=== PATIENT | male | born 1955 | race Caucasian/White ===

== ENCOUNTER → 2018-01-21 | Outpatient (CLI) | payer OTHER ==
[~2018-01-21] MED LIST: AMARYL; GEMF600T4 PO; GLIM4TAB PO; GLIMEPIRIDE; HYDR-3820 PO; HYDROCODONE; LEVO125T6 PO; METF10002 PO; METFORMIN; PANT40TA3 PO; SYNTHROID
--- NOTE | 2018-01-21 11:53 | Diagnostic Imaging Report ---
PROCEDURE: US abdomen complete. TECHNIQUE: Multiple real-time grayscale images were obtained over the abdomen in various projections. INDICATION: Epigastric pain. Study is somewhat compromised due to overlying bowel gas. The pancreas, aorta and IVC were obscured by bowel gas. The liver is normal in size at 14 cm. There is a 15 mm cyst involving the left lobe. No other liver mass is identified. The gallbladder is without stones or sludge. No wall thickening or biliary duct dilatation is seen. Right and left kidneys are unremarkable. No calculi or hydronephrosis is seen. There is no ascites. IMPRESSION: 1. Small hepatic cyst. 2. No evidence of cholelithiasis or acute cholecystitis. Dictated by: Dictated on workstation # [id number]
== END ==
LOC: RAD 11:04
PROVIDERS: ATTEND Internal Medicine
DX: K76.89 Other specified diseases of liver (principal)
CPT/HCPCS: 76700

== ENCOUNTER 2018-02-25 14:42 | Outpatient (CLI) | payer OTHER ==
[~2018-02-25] VITALS: Ht 180.3 cm; Wt 89.8 kg
[~2018-02-25 14:42] MED LIST changes: +INSU100I14 SQ; +INSU100I32 SQ; +LISI10TA2 PO; +METF-399 PO; -METF10002 PO
[2018-03-01] MEDS ORDERED: ACHD5005 PO (13:15)
== END 2018-02-25 15:00 | disposition home or self-care (01) ==
LOC: PREOP 14:42
PROVIDERS: ATTEND Surgery
DX: Z01.818 Encounter for other preprocedural examination (principal)

== ENCOUNTER 2018-03-01 08:28 | Inpatient (IN) | payer OTHER, MEDICARE ==
[~2018-03-01] VITALS: Ht 180.3 cm; Wt 89.8 kg
[2018-03-01 09:00] VITALS: BP 97/58
[2018-03-01] MEDS ORDERED: fentaNYL INJECTION 100 MCG/2 ML AMP ONE ×3 (09:10→13:01)
[2018-03-01] MEDS ORDERED: MIDAZOLAM 2 MG/2 ML (VERSED) VIAL ONE (09:10)
[2018-03-01] MEDS ORDERED: metroNIDAZOLE 500 MG/100 ML IVPB (PRE-MIX) IV ONE (09:15)
[2018-03-01] MEDS ORDERED: ceFAZolin 2 GM IV Premixed 50 ML IV ONE (09:15)
[2018-03-01] MEDS ORDERED: metroNIDAZOLE 500MG/100ML IVPB 100 ML IV ONE (09:15)
[2018-03-01] MEDS ORDERED: ceFAZolin 2 GM/50 ML PRE-MIX IVPB IV ONE (09:15)
[2018-03-01] MEDS: LACTATED RINGERS 1,000 ML IV PRN ×3 (09:21→12:50)
[2018-03-01] MEDS ORDERED: FAMOTIDINE 20MG/2ML IV (PEPCID) ONE (09:40)
[2018-03-01] MEDS ORDERED: BUP/EPI 0.5% 1:200,000 (SENSORCAINE) 30 ML VIAL ONE (09:53)
[2018-03-01] MEDS ORDERED: FAMOTIDINE 20MG/2ML IV (PEPCID) IVP ONE (10:00)
--- NOTE | 2018-03-01 10:36 | Progress Note-Pre Operative ---
Pre-Operative Progress Note H&P Reviewed The H&P was reviewed, patient examined and no changes noted. Date Seen by Provider: Feb 17, 2018 Time Seen by Provider: 10:00 Date H&P Reviewed: Mar 01, 2018 Time H&P Reviewed: 10:35 Pre-Operative Diagnosis: mass of the small bowel mesentery RICHMOND RUIZ MD Mar 01, 2018 10:36
[2018-03-01] MEDS ORDERED: ROCURONIUM 10 MG/ML 5 ML SYRINGE IV ONE ×2 (11:29→12:31)
[2018-03-01] MEDS ORDERED: DEXAMETHASONE 10 MG/ML (DECADRON) 1 ML VIAL ONE (11:29)
[2018-03-01] MEDS ORDERED: LIDOCAINE JELLY 2% (XYLOCAINE) 5 ML TUBE ONE (11:29)
[2018-03-01] MEDS ORDERED: ONDANSETRON 4 MG/2 ML (SDV) Z0FRAN ONE (11:29)
[2018-03-01] MEDS ORDERED: LIDOCAINE PF 2% 2 ML (XYLOCAINE) VIAL ONE (11:29)
[2018-03-01] MEDS ORDERED: proPOfol 200 MG/20 ML (DIPRIVAN) VIAL IV ONE (11:29)
[2018-03-01] MEDS ORDERED: SEVOFLURANE (ULTANE) 15 ML INHAL SOLN ONE ×6 (11:29→12:53)
--- NOTE | 2018-03-01 13:10 | Operative Report ---
Operative Report Date of Procedure/Surgery Mar 01, 2018 Surgeon (s) RICHMOND RUIZ MD Vehicle Maintenance Supervisor (s): N/A Post-Operative Diagnosis Mesenteric mass without involvement of the small bowel Procedure Performed Robotic-assisted excision of mesenteric mass Description of Procedure Anesthesia Type: General Estimated blood loss (mL): 25 mL Specimen(s) collected/removed Mesenteric mass Description of the Procedure Indication for the procedure: Evaluation for severe upper abdominal pain revealed a 10 cm mass along the mesentery of the proximal small bowel without any calcification. Due to his symptoms, it was felt reasonable to resect it using minimally invasive technique with robotic assistance. The potential for resecting an associated segment of bowel was discussed explicitly. With regard to the operative procedure, expected recovery, complications of wound infection , intra-abdominal abscess and cardiorespiratory dysfunction with discussed with. Informed consent was obtained. Description of the procedure: He was placed supine on the operative table and general anesthesia induced. A Jenkins catheter was placed to decompress the bladder during surgery. It was removed at the end of the operation. Ancef and Flagyl were administered intravenously as prophylaxis against wound infection. Sequential compression devices were placed around his legs, to minimize the risk of venous thrombosis. Abdomen was prepared and draped in the usual sterile manner. Pneumoperitoneum was established using a Veress needle introduced inferior lateral to the umbilicus, overlying the left lower quadrant, avoiding the inferior epigastric vessels. Intra-abdominal pressure was maintained at 15 mmHg, using carbon dioxide insufflation. A 12 mm trocar was placed and anatomy visualized using the high definition, 3-dimensional laparoscope, associated with da Lucho system. Omentum was wrapped around the mass located around the mid transverse colon. Under direct view, I placed a 12 mm trocar over the left upper quadrant and an 8 mm trocar over the suprapubic region. An additional 8 mm trocar was placed over the epigastric region to facilitate placing the robotic third arm. Patient was turned into slight Trendelenburg position with the right side tilted up and the robotic system docked in place. Omentum was from the right lower quadrant, where it was adherent to the abdominal wall. It was then laid over the upper abdomen revealing the mass. It was loosely adherent to the transverse mesocolon and the root of the mesentery. The small bowel itself was not involved with the pathologist. My careful dissection using the vessel sealing device, the mass was isolated and placed in an Endo Catch bag. Further exploration of the transverse colon and the small bowel was negative for any iatrogenic injury. A 4 cm suprapubic incision was made in a transverse fashion and a small wound protection device placed. Pneumoperitoneum was deflated and the mass placed in an Endo Catch bag via the suprapubic incision. Peritoneum over this incision was closed using 3-0 PDS. The fascia was closed using #2 Prolene. Subcutaneous tissue was closed using 3-0 Vicryl and skin using 4-0 Vicryl. With regard to the 12 mm incisions, the fascia was closed using #1 Vicryl. Skin was closed using 4-0 Vicryl, in a subcuticular fashion. 0.5 percent Marcaine with epinephrine was infiltrated along the incisions both preemptively and at the conclusion of the operation. He tolerated the procedure well, was extubated in the operating room and taken to the recovery room in a stable condition. Findings of the Procedure see op report Allergies and Home Medications Allergies Coded Allergies: No Known Drug Allergies (Unverified , 05/23/12) Home Medications Gemfibrozil 600 Mg Tablet, 600 MG PO BID, (Reported) Glimepiride 4 Mg Tablet, 4 MG PO BID, (Reported) Hydrocodone/Acetaminophen 1 Each Tablet, 1 EACH PO BID, (Reported) Insulin Aspart 300 Units/3 Ml Solution, 10 UNITS SQ TIDAC, (Reported) Insulin Degludec 100 Unit/1 Ml Insuln.pen, 15 UNIT SQ HS, (Reported) Levothyroxine Sodium 125 Mcg Tablet, 125 MCG PO DAILY, (Reported) Metformin HCl 1,000 Mg Tablet, 1,000 MG PO BID, (Reported) Patient Home Medication List Home Medication List Reviewed: Yes RICHMOND RUIZ MD Mar 01, 2018 13:10
[2018-03-01] MEDS ORDERED: ONDANSETRON 4 MG/2 ML (SDV) Z0FRAN IVP PRN ×2 (13:15→13:45)
[2018-03-01] MEDS ORDERED: ACHD5005 PO (13:15)
[2018-03-01] MEDS ORDERED: PATIENT MAY USE OWN MEDS, ALL PO SCH (13:15)
--- NOTE | 2018-03-01 13:16 | Discharge Inst-Simple/Standard ---
Discharge Inst-Standard Discharge Medications New, Converted or Re-Newed RX: RX on Chart Patient Instructions/Follow Up Plan of Care/Instructions/FU: Band-Aids off in a.m. Follow-up in 2 weeks Activity as Tolerated: No Goal: No lifting or pushing Discharge Diet: ADA Diet RICHMOND RUIZ MD Mar 01, 2018 13:16
[2018-03-01] MEDS ORDERED: HYDROmorphone 2 MG/ML VIAL (DILAUDID) ONE (13:30)
[2018-03-01] MEDS ORDERED: SUGAMMADEX 500 MG/5 ML VIAL (BRIDION) IV ONE (13:33)
[2018-03-01] MEDS ORDERED: fentaNYL INJECTION 100 MCG/2 ML AMP IVP ONE (13:45)
[2018-03-01] MEDS ORDERED: MEPERIDINE (DEMEROL) INJ 50 MG/ML IVP ONE (13:45)
[2018-03-01] MEDS ORDERED: HYDROmorphone 2 MG/ML VIAL (DILAUDID) IV ONE (13:45)
[2018-03-01] MEDS: LACTATED RINGERS 1,000 ML IV SCH ×2 (13:50→17:03)
[2018-03-01 14:30] VITALS: BP 144/70
[2018-03-01] MEDS ORDERED: LISI10TA2 PO (15:08)
[2018-03-01 15:40] VITALS: BP 129/65
[2018-03-01] MEDS ORDERED: FLU QUADRIvalent (5+ YOA) 2018-2019 (AFLURIA) 0.5 ML IM ONE (15:45)
[2018-03-01] MEDS: inSUlin ASPART (NovoLOG) 1 UNIT/0.01 ML (CHARGE PER UNIT) SC SCH ×2 (16:00→21:57)
[2018-03-01] MEDS: HYDROcodone/APAP 5 MG/325 MG (LORTAB) TAB PO PRN ×2 (17:02→23:23)
[2018-03-01] MEDS: ceFAZolin INJECTION 1,000 MG in NS (IVPB) 50 ML IV SCH (18:41)
[2018-03-01 19:35] VITALS: BP 128/60
[2018-03-02] VITALS (8 sets, daily range): BP systolic 120–177; BP diastolic 62–84
[2018-03-02] MEDS: fentaNYL INJECTION 100 MCG/2 ML AMP IV PRN ×5 (00:36→21:45)
[2018-03-02] MEDS: ceFAZolin INJECTION 1,000 MG in NS (IVPB) 50 ML IV SCH (02:46)
[2018-03-02] MEDS: LACTATED RINGERS 1,000 ML IV SCH (03:20)
[2018-03-02] MEDS: HYDROcodone/APAP 5 MG/325 MG (LORTAB) TAB PO PRN ×5 (03:23→23:39)
[2018-03-02] MEDS: LEVOTHYROXINE 125 MCG (LEVOTHROID) TABLET PO SCH (05:52)
[2018-03-02] MEDS: inSUlin ASPART (NovoLOG) 1 UNIT/0.01 ML (CHARGE PER UNIT) SC SCH ×4 (05:57→21:45)
--- NOTE | 2018-03-02 09:26 | Anesthesia-General Post-Op ---
General Patient Condition Mental Status/LOC: Same as Preop Cardiovascular: Satisfactory Nausea/Vomiting: Absent Respiratory: Satisfactory Pain: Controlled Complications: Absent Post Op Complications Complications None Follow Up Care/Instructions Patient Instructions None needed. Anesthesia/Patient Condition Patient Condition Patient is doing well, no complaints, stable vital signs, no apparent adverse anesthesia problems. No complications reported per nursing. D/C home per [facility] Criteria: Yes NICOLE COTTRELL CRNA Mar 02, 2018 09:26
--- NOTE | 2018-03-02 12:54 | Progress Note-Standard ---
Standard Progress Note Progress Notes/Assess & Plan Date Seen by a Provider: Mar 02, 2018 Time Seen by a Provider: 12:52 Progress/Assessment & Plan Doing well. Incisions dry. Home tomorrow Final Diagnosis Mesenteric mass RICHMOND RUIZ MD Mar 02, 2018 12:54
[2018-03-02] MEDS ORDERED: ENOXAPARIN 40 MG/0.4 ML (LOVENOX) SYR SC SCH (13:15)
[2018-03-02] MEDS: metFORMIN 500 MG (GLUCOPHAGE) TAB PO SCH (16:34)
[2018-03-02] MEDS: GLIMEPIRIDE 4 MG (AMARYL) TAB PO SCH (16:48)
[2018-03-02] MEDS ORDERED: lisINopril 10 MG (PRINIVIL) TABLET PO SCH (21:00)
[2018-03-02] MEDS: GEMFIBROZIL 600 MG (LOPID) TAB PO SCH (21:46)
[2018-03-03 04:00] VITALS: BP 153/83
[2018-03-03] MEDS: LEVOTHYROXINE 125 MCG (LEVOTHROID) TABLET PO SCH (06:51)
[2018-03-03] MEDS: inSUlin ASPART (NovoLOG) 1 UNIT/0.01 ML (CHARGE PER UNIT) SC SCH ×2 (06:51→11:25)
[2018-03-03] MEDS: GLIMEPIRIDE 4 MG (AMARYL) TAB PO SCH (06:51)
[2018-03-03] MEDS: metFORMIN 500 MG (GLUCOPHAGE) TAB PO SCH (06:51)
[2018-03-03] MEDS: HYDROcodone/APAP 5 MG/325 MG (LORTAB) TAB PO PRN (06:55)
[2018-03-03 08:00] VITALS: BP 151/85
[2018-03-03] MEDS: GEMFIBROZIL 600 MG (LOPID) TAB PO SCH (08:36)
[2018-03-03] MEDS ORDERED: LEVOTHYROXINE 125 MCG (LEVOTHROID) TABLET PO SCH (09:00)
[2018-03-03 12:05] VITALS: BP 151/85
--- NOTE | 2018-03-03 13:11 | Progress Note-Standard ---
Standard Progress Note Progress Notes/Assess & Plan Date Seen by a Provider: Mar 03, 2018 Time Seen by a Provider: 11:10 Progress/Assessment & Plan Doing well. Incisions dry. Home tomorrow. Doing well. Low grade fever last night; no dysuria. No wound infection. Currently afebrile and could be discharged Final Diagnosis Fat necrosis of mesentery RICHMOND RUIZ MD Mar 03, 2018 13:11
--- NOTE | 2018-03-03 13:14 | Discharge Summary ---
Diagnosis/Chief Complaint Date of Admission Mar 01, 2018 at 08:28 Date of Discharge Mar 03, 2018 at 11:23 Discharge Date: Mar 03, 2018 Discharge Time: 11:33 Admission Diagnosis Admission Diagnosis Mesenteric mass Discharge Diagnosis Fat necrosis of mesentery, forming a mass lesion Reason Hospital Visit Symptomatic 10 cm mesenteric mass, admitted for an elective resection using robotic assistance (minimally invasive technique). Has made a satisfactory recovery Discharge Summary Procedures Robotic assisted resection of mesenteric mass Consultations none Discharge Physical Examination Allergies: Coded Allergies: No Known Drug Allergies (Unverified , 05/23/12) Vitals & I&Os Vital Signs Date Time Temp Pulse Resp B/P (MAP) Pulse Ox O2 Delivery O2 Flow Rate FiO2 03/03/18 12:05 71 18 151/85 95 Room Air 95.00 03/03/18 08:00 98.7 Hospital Course Labs (last 24 hrs) Laboratory Tests 03/01/18 08:47: Glucometer 208H 03/01/18 15:45: Glucometer 175H 03/01/18 21:12: Glucometer 209H 03/02/18 05:47: Glucometer 212H 03/02/18 11:19: Glucometer 289H 03/02/18 16:15: Glucometer 236H 03/02/18 21:12: Glucometer 226H 03/03/18 05:07: Glucometer 230H 03/03/18 11:05: Glucometer 240H Microbiology 03/01/18 MRSA Screen - Final, Complete MRSA not isolated Pending Labs Microbiology Date/Time Source Procedure Growth Status 03/01/18 08:50 Nasal MRSA Screen - Final MRSA not isolated Complete Laboratory Tests 03/01/18 08:47: Glucometer 208 03/01/18 15:45: Glucometer 175 03/01/18 21:12: Glucometer 209 03/02/18 05:47: Glucometer 212 03/02/18 11:19: Glucometer 289 03/02/18 16:15: Glucometer 236 03/02/18 21:12: Glucometer 226 03/03/18 05:07: Glucometer 230 03/03/18 11:05: Glucometer 240 Discharge Home Medications: Active Scripts Active Hydrocodone/Acetaminophen 5/325mg Tablet (Acetaminophen/Hydrocodone Bitart) 1 Tab Tab 1 Tab PO Q6H PRN MDD 10 Reported Lisinopril 10 Mg Tablet 10 Mg PO HS Tresiba Flextouch U-100 (Insulin Degludec) 100 Unit/1 Ml Insuln.pen 15 Unit SQ HS Novolog Flexpen (Insulin Aspart) 300 Units/3 Ml Solution 10 Units SQ TIDAC Levothyroxine Sodium 125 Mcg Tablet 125 Mcg PO DAILY Gemfibrozil 600 Mg Tablet 600 Mg PO BID Glimepiride 4 Mg Tablet 4 Mg PO BID Metformin HCl 1,000 Mg Tablet 1,000 Mg PO BID Instructions to patient/family Please see electronic discharge instructions given to patient. Clinical Quality Measures DVT/VTE Risk/Contraindication: Risk Factor Score Per Nursin RFS Level Per Nursing on Admit: 4+=Very High RICHMOND RUIZ MD Mar 03, 2018 13:14
== END 2018-03-03 11:23 | disposition home or self-care (01) | DRG 394 ==
LOC: 4TH 08:28 → SURG 08:29 → 4TH 14:20 → EDPENDDISTM 03-03 11:33 → EDPENDDISDT 03-03 11:33
PROVIDERS: ADMIT Surgery; ATTEND Surgery
PROC: 8E0W4CZ Robotic Assisted Procedure of Trunk Region, Percutaneous Endoscopic Approach (ICD-10-PCS; 2018-03-01)
PROC: 0DBV4ZX Excision of Mesentery, Percutaneous Endoscopic Approach, Diagnostic (ICD-10-PCS; principal; 2018-03-01 11:00)
DX: K65.4 Sclerosing mesenteritis (principal); G71.0 Muscular dystrophy; E11.9 Type 2 diabetes mellitus without complications; E03.9 Hypothyroidism, unspecified; G47.33 Obstructive sleep apnea (adult) (pediatric); Z79.4 Long term (current) use of insulin; Z91.14 Patient's other noncompliance with medication regimen
CPT/HCPCS: 82962; 86850; 86900; 86901; 87081; 88307; 94664

== ENCOUNTER 2018-04-14 05:49 | Outpatient (CLI) | payer OTHER, MEDICARE ==
[~2018-04-14] VITALS: Ht 180.3 cm; Wt 89.8 kg
[~2018-04-14 05:49] MED LIST changes: +ACHD5005 PO
== END 2018-04-14 10:36 | disposition home or self-care (01) ==
LOC: PREOP 05:49
PROVIDERS: ATTEND Specialist
DX: Z01.818 Encounter for other preprocedural examination (principal)

== ENCOUNTER 2018-04-16 10:04 | Day surgery (SDC) | payer OTHER, MEDICARE ==
[~2018-04-16] VITALS: Ht 180.3 cm; Wt 89.8 kg
--- OUTSIDE RECORDS SUMMARY | 2018-04-16 10:06 | XMS REPORT | Clinical Summary ---
Author Author [facility] Organization [facility] Address Unknown Phone Unavailable Care Team Providers Care Clinical Laboratory Science Professor Name Role Phone Yovani Viveros MD PCP Source Comments Some departments are not documenting in the electronic medical record. If you do not see the information that you expected, contact Release of Information in the Health Information Management department at [phone] for further assistance in locating additional records.[facility] Allergies Not on File Current Medications Not on file Active Problems Not on file Encounters Date Type Specialty Care Team Description 02/17/2018 Telephone Oncology Isidoro Wylie MD Appointment 02/16/2018 Telephone Oncology Isidoro Wylie MD Navigation Follow Up 02/12/2018 Ancillary Radiology Outpatient, Radiologist Diagnosis unknown Orders 02/05/2018 Orders Only Oncology Isidoro Wylie MD Mesenteric mass (Primary Dx) 02/05/2018 Telephone Oncology Isidoro Wylie MD Navigation Assessment 01/29/2018 Hospital Radiology Encounter from Last 3 Months Social History Tobacco Use Types Packs/Day Years Used Date Never Assessed Sex Assigned at Date Recorded Not on file Last Filed Vital Signs Not on file Plan of Treatment Health Maintenance Due Date Last Done Comments HEPATITIS C SCREENING 1954 PHYSICAL (COMPREHENSIVE) 1961 EXAM PERTUSSIS VACCINE 1965 HIV SCREENING 1969 TETANUS VACCINE 09/15/1971 COLORECTAL CANCER 2004 SCREENING SHINGLES RECOMBINANT 2004 VACCINE (1 of 2) INFLUENZA VACCINE 01/06/2018 Procedures Procedure Name Priority Date/Time Associated Diagnosis Comments CT ABDOMEN EXTERNAL Routine 01/29/2018 Diagnosis unknown Results for this IMAGING 12:00 AM CDT procedure are in the results section. from Last 3 Months Results * CT ABDOMEN EXTERNAL IMAGING (01/29/2018) Narrative Performed At This order has been auto finalized and does not contain a result. from Last 3 Months
--- OUTSIDE RECORDS SUMMARY | 2018-04-16 10:06 | XMS REPORT | Encounter Summary ---
Author Author [facility] Organization [facility] Address Unknown Phone Unavailable Care Team Providers Care Compensator Name Role Phone Yovani Viveros MD PCP Reason for Visit * Reason Comments Appointment Encounter Details Date Type Department Care Team Description 02/17/2018 Telephone [facility] Isidoro Wylie MD Appointment [facility] - [facility] Ex[facility] [address] [facility] [address] [place] [address] [place] [address] [phone] Social History Tobacco Use Types Packs/Day Years Used Date Never Assessed Sex Assigned at Date Recorded Not on file as of this encounter Functional Status Functional Status Response Date of Assessment Does the patient have impaired ambulation: Yes 02/10/2018 as of this encounter Miscellaneous Notes * Telephone Encounter - Sally Guzman RN - 02/17/2018 2:09 PM CDT Called patient to follow up from conversation with finance. Spoke to patient . He was clearly upset that his insurance does not cover him at and feels very frustrated . He states, " We're done, this sucks, [facility] sucks , I'm done " and hung up the phone. No further follow up needed. in this encounter Plan of Treatment Not on fileas of this encounter Visit Diagnoses Not on filein this encounter
--- OUTSIDE RECORDS SUMMARY | 2018-04-16 10:06 | XMS REPORT | Encounter Summary ---
Author Author [facility] Organization [facility] Address Unknown Phone Unavailable Care Team Providers Care Rn Oncology Clinical Name Role Phone Yovani Viveros MD PCP Reason for Visit * Reason Comments Navigation Follow Up Encounter Details Date Type Department Care Team Description 02/16/2018 Telephone [facility] Isidoro Wylie MD Navigation Follow Up Cancer Center - [facility] Exam [address] [facility] [address] [place] [address] [place] [address] [phone] Social History Tobacco Use Types Packs/Day Years Used Date Never Assessed Sex Assigned at Date Recorded Not on file as of this encounter Functional Status Functional Status Response Date of Assessment Does the patient have impaired ambulation: Yes 02/10/2018 as of this encounter Miscellaneous Notes * Telephone Encounter - Sally Guzman RN - 02/16/2018 11:16 AM CDT Per [facility] [employer], the facility is out of network for patient , although provider is in network. Per Rhianna BRITTON , patient declines to come private pay. Called and spoke to Kalie at Dr. Cassidy office to notify her that the insurance demographics that had originally been faxed was incorrect and that the patient was out of network. She will contact the patient to make other arraignments. in this encounter Plan of Treatment Not on fileas of this encounter Visit Diagnoses Not on filein this encounter
--- OUTSIDE RECORDS SUMMARY | 2018-04-16 10:06 | XMS REPORT | Encounter Summary ---
Author Author [facility] Organization [facility] Address Unknown Phone Unavailable Care Team Providers Care Spreading Machine Operator Name Role Phone PCP Unavailable Reason for Referral * Radiology Services (Routine) Status Reason Specialty Diagnoses / Referred By Referred To Procedures Contact Contact Pending Review Radiology Diagnoses Arteaga, Emily, [address] Mesenteric mass PA-C [address] [place] [place] [address] CT CHEST W [place] [address] Phone: [place], [place] [phone] ABDOMEN & [address] [place] Phone: W/CONTRAST [phone] MATERIAL * Radiology Services (Routine) Status Reason Specialty Diagnoses / Referred By Referred To Procedures Contact Contact New Request Radiology Diagnoses Arteaga, Emily, Mesenteric mass PA-C P [address] ABD/PELV W [place] [address] [place] [address] Encounter Details Date Type Department Care Team Description 02/05/2018 Orders Only [facility] Isidoro Wylie MD Mesenteric mass (Primary [facility] Exam [address] Dx) [facility] [place] [address] [facility] [place] [address] [place] [address] [phone] Social History Tobacco Use Types Packs/Day Years Used Date Never Assessed Sex Assigned at Date Recorded Not on file as of this encounter Plan of Treatment Name Priority Associated Diagnoses Order Schedule CT ABD/PELV W CONTRAST Routine Mesenteric mass Expected: 02/05/2018 (Approximate), Expires: 02/05/2019 CT CHEST W CONTRAST Routine Mesenteric mass Expected: 02/05/2018 (Approximate), Expires: 02/05/2019 CBC AND DIFF Routine Mesenteric mass Expected: 02/12/2018 (Approximate), Expires: 02/05/2019 COMPREHENSIVE METABOLIC PANEL Routine Mesenteric mass Expected: 2017, Expires: 02/05/2019 as of this encounter Visit Diagnoses Diagnosis Mesenteric mass - Primary Other specified disorder of peritoneum
--- OUTSIDE RECORDS SUMMARY | 2018-04-16 10:06 | XMS REPORT | Encounter Summary ---
Author Author [facility] Organization [facility] Address Unknown Phone Unavailable Care Team Providers Care Retail Consultant Name Role Phone Yovani Viveros MD PCP Encounter Details Date Type Department Care Team Description 02/12/2018 Ancillary Rad Outpatient, Radiologist Diagnosis unknown Orders [address] [facility] [place] [address] Social History Tobacco Use Types Packs/Day Years Used Date Never Assessed Sex Assigned at Date Recorded Not on file as of this encounter Functional Status Functional Status Response Date of Assessment Does the patient have impaired ambulation: Yes 02/10/2018 as of this encounter Plan of Treatment Not on fileas of this encounter Results * CT ABDOMEN EXTERNAL IMAGING (01/29/2018) Narrative Performed At This order has been auto finalized and does not contain a result. in this encounter Visit Diagnoses Diagnosis Diagnosis unknown Other unknown and unspecified cause of morbidity or mortality
--- OUTSIDE RECORDS SUMMARY | 2018-04-16 10:07 | XMS REPORT | Continuity of Care Document ---
Author Author [facility] Organization [facility] Address Unknown Phone Unavailable Allergies Active Description Code Type Severity Reaction Onset Reported/Identified Relationship to Patient Clinical Status Yes No Known Drug Allergies [id number] Drug Allergy Unknown N/A 05/23/2012 Medications There is no data. Problems Date Dx Coded Attending Type Code Diagnosis Diagnosed By 05/23/2012 Ot 890.0 OPEN WOUND OF HIP/THIGH 05/23/2012 Ot E000.8 OTHER EXTERNAL CAUSE STATUS 05/23/2012 Ot E849.0 ACCIDENT IN HOME 05/23/2012 Ot E888.0 FALL STRIKING SHARP OBJECT 05/23/2012 Ot E920.8 ACC-CUTTING INSTRUM NEC 06/04/2012 Ot V58.32 ENCOUNTER FOR REMOVAL OF SUTURES 07/27/2015 LISA SCHWARTZ DO Ot 780.79 07/27/2015 LISA SCHWARTZ DO Ot 786.09 07/27/2015 MADISYN MARCOS MD Ot K21.9 07/27/2015 MADISYN MARCOS MD Ot Z01.818 08/13/2015 MADISYN MARCOS MD Ot K25.9 08/13/2015 MADISYN MARCOS MD Ot K44.9 09/05/2015 MADISYN MARCOS MD Ot K27.9 [facility], SITE UNSP, UNSP AC OR CHR 09/05/2015 MADISYN MARCOS MD Ot Z01.818 ENCOUNTER FOR OTHER PREPROCEDURAL EXAMIN 09/05/2015 MADISYN MARCOS MD Ot Z12.11 ENCOUNTER FOR SCREENING FOR MALIGNANT NE 09/07/2015 Ot K44.9 DIAPHRAGMATIC HERNIA WITHOUT OBSTRUCTION 09/07/2015 Ot K57.30 DVRTCLOS OF LG INT W/O PERFORATION OR AB 09/07/2015 Ot K63.5 POLYP OF COLON 09/07/2015 Ot Z12.11 ENCOUNTER FOR SCREENING FOR MALIGNANT NE 09/11/2015 Ot K44.9 09/11/2015 Ot K57.30 09/11/2015 Ot K63.5 09/11/2015 Ot Z12.11 09/27/2015 Ot K44.9 DIAPHRAGMATIC HERNIA WITHOUT OBSTRUCTION 09/27/2015 Ot K57.30 DVRTCLOS OF LG INT W/O PERFORATION OR AB 09/27/2015 Ot K63.5 POLYP OF COLON 09/27/2015 Ot Z12.11 ENCOUNTER FOR SCREENING FOR MALIGNANT NE 02/09/2016 LISA SCHWARTZ DO Ot 780.79 OT MALAISE FATIGUE 02/09/2016 LISA SCHWARTZ DO Ot 786.09 RESPIRATORY ABNORM NEC 02/09/2016 MADISYN MARCOS MD Ot K25.9 GASTRIC ULCER, UNSP ACUTE OR CHRONIC, 02/09/2016 MADISYN MARCOS MD, Ot K44.9 DIAPHRAGMATIC HERNIA WITHOUT OBSTRUCTION 02/09/2016 MADISYN MARCOS MD, Ot K21.9 GASTRO-ESOPHAGEAL REFLUX DISEASE WITHOUT 02/09/2016 MADISYN MARCOS MD Ot Z01.818 ENCOUNTER FOR OTHER PREPROCEDURAL EXAMIN 02/10/2016 LISA SCHWARTZ DO Ot 780.79 OT MALAISE FATIGUE 02/10/2016 LISA SCHWARTZ DO Ot 786.09 RESPIRATORY ABNORM NEC 02/10/2016 MADISYN MARCOS MD, Ot K25.9 GASTRIC ULCER, UNSP ACUTE OR CHRONIC, 02/10/2016 MADISYN MARCOS MD, Ot K44.9 DIAPHRAGMATIC HERNIA WITHOUT OBSTRUCTION 02/10/2016 MADISYN MARCOS MD, Ot K21.9 GASTRO-ESOPHAGEAL REFLUX DISEASE WITHOUT 02/10/2016 MADISYN MARCOS MD Ot Z01.818 ENCOUNTER FOR OTHER PREPROCEDURAL EXAMIN 02/19/2016 LISA SCHWARTZ DO Ot 780.79 OT MALAISE FATIGUE 02/19/2016 LISA SCHWARTZ DO Ot 786.09 RESPIRATORY ABNORM NEC 02/19/2016 MADISYN MARCOS MD Ot K25.9 GASTRIC ULCER, UNSP ACUTE OR CHRONIC, 02/19/2016 MADISYN MARCOS MD, Ot K44.9 DIAPHRAGMATIC HERNIA WITHOUT OBSTRUCTION 02/19/2016 MADISYN MARCOS MD, Ot K21.9 GASTRO-ESOPHAGEAL REFLUX DISEASE WITHOUT 02/19/2016 MADISYN MARCOS MD Ot Z01.818 ENCOUNTER FOR OTHER PREPROCEDURAL EXAMIN 02/01/2018 RUIZ RICHMOND STEEN Ot M62.58 MUSCLE WASTING AND ATROPHY, NEC, OTH SIT 02/01/2018 RICHMOND RUIZ MD Ot R10.9 UNSPECIFIED ABDOMINAL PAIN 02/01/2018 RICHMOND RUIZ MD Ot R14.0 ABDOMINAL DISTENSION (GASEOUS) 02/01/2018 RICHMOND RUIZ MD Ot R19.00 INTRA-ABD AND PELVIC SWELLING, MASS AND 02/25/2018 RICHMOND RUIZ MD Ot Z01.818 ENCOUNTER FOR OTHER PREPROCEDURAL EXAMIN 02/25/2018 RICHMOND RUIZ MD Ot Z01.818 ENCOUNTER FOR OTHER PREPROCEDURAL EXAMIN 02/25/2018 RICHMOND RUIZ MD Ot Z01.818 ENCOUNTER FOR OTHER PREPROCEDURAL EXAMIN 03/01/2018 LISA SCHWARTZ DO Ot 780.79 OTH MALAISE FATIGUE 03/01/2018 LISA SCHWARTZ DO Ot 786.09 RESPIRATORY ABNORM NEC 03/01/2018 MADISYN MARCOS MD Ot K25.9 GASTRIC ULCER, UNSP ACUTE OR CHRONIC, 03/01/2018 MADISYN MARCOS MD Ot K44.9 DIAPHRAGMATIC HERNIA WITHOUT OBSTRUCTION 03/01/2018 MADISYN MARCOS MD Ot K21.9 GASTRO-ESOPHAGEAL REFLUX DISEASE WITHOUT 03/01/2018 MADISYN MARCOS MD Ot Z01.818 ENCOUNTER FOR OTHER PREPROCEDURAL EXAMIN 03/01/2018 Ot K76.89 OTHER SPECIFIED DISEASES OF LIVER 03/01/2018 LISA SCHWARTZ DO Ot R10.13 EPIGASTRIC PAIN 03/01/2018 RICHMOND RUIZ MD Ot M62.58 MUSCLE WASTING AND ATROPHY, NEC, OTH SIT 03/01/2018 RICHMOND RUIZ MD Ot R10.9 UNSPECIFIED ABDOMINAL PAIN 03/01/2018 RICHMOND RUIZ MD Ot R14.0 ABDOMINAL DISTENSION (GASEOUS) 03/01/2018 RICHMOND RUIZ MD Ot R19.00 INTRA-ABD AND PELVIC SWELLING, MASS AND 03/01/2018 RICHMOND RUIZ MD Ot Z01.818 ENCOUNTER FOR OTHER PREPROCEDURAL EXAMIN 03/03/2018 RICHMOND RUIZ MD Ot E03.9 HYPOTHYROIDISM, UNSPECIFIED 03/03/2018 RICHMOND RUIZ MD Ot E11.9 TYPE 2 DIABETES MELLITUS WITHOUT COMPLIC 03/03/2018 JOSEPH STEEN, RICHMOND Horne Ot G47.33 OBSTRUCTIVE SLEEP APNEA (ADULT) (PEDIATR 03/03/2018 JOSEPH STEEN, RICHMOND Horne Ot G71.0 MUSCULAR DYSTROPHY 03/03/2018 RICHMOND RUIZ MD, Ot K65.4 SCLEROSING MESENTERITIS 03/03/2018 RICHMOND RUIZ MD Ot R19.09 OTHER INTRA-ABDOMINAL AND PELVIC SWELLIN 03/03/2018 RICHMOND RUIZ MD, Ot 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 03/03/2018 RICHMOND RUIZ MD, Ot Z91.14 PATIENT'S OTHER NONCOMPLIANCE WITH MEDIC 03/04/2018 LISA SCHWARTZ DO Ot 780.79 OTH MALAISE FATIGUE 03/04/2018 LISA SCHWARTZ DO Ot 786.09 RESPIRATORY ABNORM NEC 03/04/2018 MADISYN MARCOS MD Ot K25.9 GASTRIC ULCER, UNSP ACUTE OR CHRONIC, 03/04/2018 MADISYN MARCOS MD, Ot K44.9 DIAPHRAGMATIC HERNIA WITHOUT OBSTRUCTION 03/04/2018 MADISYN MARCOS MD, Ot K21.9 GASTRO-ESOPHAGEAL REFLUX DISEASE WITHOUT 03/04/2018 MADISYN MARCOS MD, Ot Z01.818 ENCOUNTER FOR OTHER PREPROCEDURAL EXAMIN 03/04/2018 Ot K76.89 OTHER SPECIFIED DISEASES OF LIVER 03/04/2018 LISA SCHWARTZ DO Ot R10.13 EPIGASTRIC PAIN 03/04/2018 RICHMOND RUIZ MD Ot M62.58 MUSCLE WASTING AND ATROPHY, NEC, OTH SIT 03/04/2018 RICHMOND RUIZ MD Ot R10.9 UNSPECIFIED ABDOMINAL PAIN 03/04/2018 RICHMOND RUIZ MD Ot R14.0 ABDOMINAL DISTENSION (GASEOUS) 03/04/2018 RICHMOND RUIZ MD Ot R19.00 INTRA-ABD AND PELVIC SWELLING, MASS AND 03/12/2018 LISA SCHWARTZ DO Ot R10.13 EPIGASTRIC PAIN 04/14/2018 CHARITY WHEAT MD, Ot Z01.818 ENCOUNTER FOR OTHER PREPROCEDURAL EXAMIN 04/15/2018 CHARITY WHEAT MD, Ot Z01.818 ENCOUNTER FOR OTHER PREPROCEDURAL EXAMIN Procedures Code Description Performed By Performed On [id number] EXCISION OF MESENTERY, PERC ENDO APPROAC 03/01/2018 [id number] ROBOTIC ASSISTED PROCEDURE OF TRUNK, PER 03/01/2018 Results Test Result Range Capillary blood glucose measurement by glucometer (mass/volume) - 03/01/18 08: 47 Capillary blood glucose measurement by glucometer (mass/volume) 208 mg/dL 70-110 Methicillin resistant Staphylococcus aureus (MRSA) screening culture - 08:50 Methicillin resistant Staphylococcus aureus (MRSA) screening culture NEG NRG Blood type T Indirect antibody screen panel - 03/01/18 09:00 ABO+Rh group BP NRG Transfusion band number [id number] NRG Blood group antibody screen NEGATIVE NRG Capillary blood glucose measurement by glucometer (mass/volume) - 03/01/18 15: 45 Capillary blood glucose measurement by glucometer (mass/volume) 175 mg/dL 70-110 Capillary blood glucose measurement by glucometer (mass/volume) - 03/01/18 21: 12 Capillary blood glucose measurement by glucometer (mass/volume) 209 mg/dL 70-110 Capillary blood glucose measurement by glucometer (mass/volume) - 03/02/18 05: 47 Capillary blood glucose measurement by glucometer (mass/volume) 212 mg/dL 70-110 Capillary blood glucose measurement by glucometer (mass/volume) - 03/02/18 11: 19 Capillary blood glucose measurement by glucometer (mass/volume) 289 mg/dL 70-110 Capillary blood glucose measurement by glucometer (mass/volume) - 03/02/18 16: 15 Capillary blood glucose measurement by glucometer (mass/volume) 236 mg/dL 70-110 Capillary blood glucose measurement by glucometer (mass/volume) - 03/02/18 21: 12 Capillary blood glucose measurement by glucometer (mass/volume) 226 mg/dL 70-110 Capillary blood glucose measurement by glucometer (mass/volume) - 03/03/18 05: 07 Capillary blood glucose measurement by glucometer (mass/volume) 230 mg/dL 70-110 Capillary blood glucose measurement by glucometer (mass/volume) - 03/03/18 11: 05 Capillary blood glucose measurement by glucometer (mass/volume) 240 mg/dL 70-110 Encounters ACCT No. Visit Date/Time Discharge Status Pt. Type Provider Facility Loc./Unit Complaint [id number] 04/14/2018 05:49:00 04/14/2018 10:36:00 DIS Outpatient CHARITY WHEAT MD [facility] PREOP CATARACT LEFT EYE [id number] 03/01/2018 08:28:00 03/03/2018 11:23:00 DIS Inpatient RICHMOND RUIZ MD [facility] 4TH MESENTERY MASS [id number] 02/25/2018 14:42:00 02/25/2018 15:00:00 DIS Outpatient RICHMOND RUIZ MD [facility] PREOP MESENTERY MASS [id number] 01/29/2018 08:42:00 01/29/2018 23:59:59 CLS Outpatient RICHMOND RUIZ MD [facility] RAD ABDOMINAL PAIN, BLOATING [id number] 01/25/2018 10:40:00 01/25/2018 23:59:59 CLS Outpatient LISA SCHWARTZ DO [facility] CARD R10.13 EPIGASTRIC PAIN [id number] 09/05/2015 05:34:00 09/05/2015 11:26:00 DIS Outpatient MADISYN MARCOS MD [facility] PREOP SCREENING; FOLLOW UP GASTRIC ULCERS [id number] 07/27/2015 08:53:00 07/27/2015 23:59:59 CLS Outpatient MADISYN MARCOS MD [facility] SDC REFRACTORY GERD [id number] 07/24/2015 05:58:00 07/24/2015 23:59:59 CLS Outpatient MADISYN MARCOS MD [facility] PREOP REFRACTORY GERD [id number] 01/17/2014 06:47:00 01/17/2014 23:59:59 CLS Outpatient LISA SCHWARTZ DO [facility] CARD ARORA,FATIGUE [id number] 04/16/2018 10:04:00 ACT Outpatient CHARITY WHEAT MD [facility] SDC CATARACT LEFT EYE [id number] 01/21/2018 11:04:00 Document Registration [id number] 09/07/2015 07:11:00 Document Registration [id number] 06/04/2012 09:01:00 Document Registration [id number] 05/23/2012 17:31:00 Document Registration
--- OUTSIDE RECORDS SUMMARY | 2018-04-16 10:07 | XMS REPORT | Encounter Summary ---
Author Author [facility] Organization [facility] Address Unknown Phone Unavailable Care Team Providers Care Computer Programmer Chief Name Role Phone PCP Unavailable Encounter Details Date Type Department Care Team Description 01/29/2018 Hospital [facility] Encounter Hospital Radiology [facility] [address] [place] [id number] Social History Tobacco Use Types Packs/Day Years Used Date Never Assessed Sex Assigned at Date Recorded Not on file as of this encounter Plan of Treatment Not on fileas of this encounter Procedures Procedure Name Priority Date/Time Associated Diagnosis Comments CT ABDOMEN EXTERNAL Routine 01/29/2018 Diagnosis unknown Results for this IMAGING 12:00 AM CDT procedure are in the results section. in this encounter Results * CT ABDOMEN EXTERNAL IMAGING (01/29/2018) Narrative Performed At This order has been auto finalized and does not contain a result. in this encounter Visit Diagnoses Diagnosis Diagnosis unknown Other unknown and unspecified cause of morbidity or mortality
--- OUTSIDE RECORDS SUMMARY | 2018-04-16 10:07 | XMS REPORT | Encounter Summary ---
Author Author [facility] Organization [facility] Address Unknown Phone Unavailable Care Team Providers Care Sluice Tender Name Role Phone PCP Unavailable Reason for Visit * Reason Comments Navigation Assessment Encounter Details Date Type Department Care Team Description 02/05/2018 Telephone [facility] Isidoro Wylie MD Navigation Assessment [facility] - Exam [address] [facility] [address] [place] [address] [place] [address] [phone] Social History Tobacco Use Types Packs/Day Years Used Date Never Assessed Sex Assigned at Date Recorded Not on file as of this encounter Functional Status Functional Status Response Date of Assessment Does the patient have impaired ambulation: Yes 02/10/2018 as of this encounter Miscellaneous Notes * Telephone Encounter - Sally Guzman RN - 02/10/2018 2:01 PM CDT Formatting of this note may be different from the original. Navigation Intake Assessment Document Patient Name: Abdelrahman Field : 1955 Insurance: [employer] Appointment Info: Future Appointments Date Time Provider Department Center 02/24/2018 10:15 AM [facility] 02/24/2018 1:20 PM Isidoro Wylie MD [facility] Exam Diagnosis & Reason for Visit: Abdominal pain and bloating, mesenteric mass Physician Info: Referring Physician: Dr Cassidy [phone] Location of Films: IN HOUSE and PACS Location of Pathology: None History of Present Illness: Recent onset of abdominal pain and bloating. He was sent for CT scan on 01/29/2018 Abnormal density in the mesenteric fat in the mid abdomen to the right of midline. Most recent colonoscopy was [address] planned at the morning of his appointment. NEEDS Assessment: Genetic Counseling: Not Applicable Nutrition: Patient reports intentional weight loss over the lastyear from 260 # to 190's Have you recently lost weight without trying?: No If yes, how much weight have you lost?: 70 # Weight Loss Score: 4 2-13lb=1 14-23 lb=2 24-33 lb=3 34lb=4 Unsure=2 Have you been eating poorly because of a decreased appetite?: no Appetite Score: 0 No=0 Yes=1 MST Score: 0 (Add weight loss and appetite scores) MST score of 2 or more=At Risk Social Work/Financial: No need identified Spiritual & Emotional: Emotional support provided Physical: Hx of muscular dystrophy. Uses assistive devices and Patient provided information on available services Communication: No needs identified Oncofertility - Females age 40 and under; Males age 50 and under : Not applicable in this encounter Plan of Treatment Not on fileas of this encounter Visit Diagnoses Not on filein this encounter
[2018-04-16 10:10] VITALS: BP 151/77
[2018-04-16] MEDS ORDERED: MOXIFLOXACIN OPHTH SOLN 5 MG/ML 0.3 ML SYRINGE OP ONE (10:15)
[2018-04-16] MEDS ORDERED: TIMOLOL MALEATE 0.5% 5 ML (TIMOPTIC) BTL OU PRN (10:15)
[2018-04-16] MEDS ORDERED: POVIDONE (BETADINE) OPHTH SOLN 5% 30 ML OP ONE (10:15)
[2018-04-16] MEDS ORDERED: LIDOCAINE PF 1% 2 ML AMP IR PRN (10:15)
[2018-04-16] MEDS: TETRACAINE 0.5% OPHTH SOLN 4 ML BTL (SINGLE DOSE ONLY) OU PRN ×4 (10:25→10:49)
[2018-04-16] MEDS: CYCLOPENTOLATE 1% (CYCLOGYL) 2 ML DROPS OP SCH ×3 (10:35→10:49)
[2018-04-16] MEDS: PHENYLEPHRINE 10% OPHTH (NEO-SYN) 5 ML BTL OU SCH ×3 (10:35→10:49)
[2018-04-16] MEDS ORDERED: MIDAZOLAM 2 MG/2 ML (VERSED) VIAL ONE (10:57)
--- NOTE | 2018-04-16 11:14 | Ophthalmologist Pre-Op Note ---
Pre-Operative Progress Note H&P Reviewed The H&P was reviewed, patient examined and no changes noted. Date H&P Reviewed: Apr 16, 2018 Time H&P Reviewed: 11:09 Pre-Op Dx Cataract, Left Eye CHARITY WHEAT MD Apr 16, 2018 11:14
--- NOTE | 2018-04-16 11:22 | Anesthesia-General Post-Op ---
MAC Patient Condition Mental Status/LOC: Same as Preop Cardiovascular: Satisfactory Nausea/Vomiting: Absent Respiratory: Satisfactory Pain: Controlled Complications: Absent Post Op Complications Complications None Follow Up Care/Instructions Patient Instructions None needed. Anesthesiology Discharge Order Discharge Order Patient is doing well, no complaints, stable vital signs, no apparent adverse anesthesia problems. No complications reported per nursing. JARETH HOOD CRNA Apr 16, 2018 11:22
--- NOTE | 2018-04-16 11:35 | Ophthalmology Operative Report ---
Cataract removal/placement IOL PREOPERATIVE DIAGNOSIS: Cataract Left Eye POSTOPERATIVE DIAGNOSIS: Cataract Left Eye PROCEDURE: Cataract removal and placement of posterior chamber implant, left eye SURGEON: Bradley Wheat ANESTHESIA: Topical with sedation COMPLICATIONS: None ESTIMATED BLOOD LOSS: Minimal DESCRIPTION OF PROCEDURE: After proper informed consent was obtained, the patient, a 62 male, was taken to the Operating Room and the left eye was anesthetized with tetracaine. The left eye was then prepped and draped in the usual manner. A wire lid speculum was placed. A paracentesis was made at the left hand position. Preservative free lidocaine was injected into the anterior chamber followed by viscoelastic. A clear corneal incision was made in the temporal position. A capsulorrhexis was preformed and the central nuclear and cortical material were removed. The posterior capsule was polished and an Reggie 18.5 [id number] was placed into the capsular bag. The residual viscoelastic was aspirated and balanced saline solution was injected into the anterior chamber. Moxifloxacin was injected into the anterior chamber. The wound was checked and found to be water tight. The patient tolerated the procedure well without complications. BRADLEY WHEAT MD Apr 16, 2018 11:35
[2018-04-16 11:55] VITALS: BP 120/98
[2018-04-16] MEDS ORDERED: acetaZOLAMIDE ER 500 MG CAP (DIAMOX SEQUELS) PO ONE (12:00)
== END 2018-04-16 11:55 | disposition home or self-care (01) ==
LOC: SDC 10:04
PROVIDERS: ATTEND Specialist
DX: H25.12 Age-related nuclear cataract, left eye (principal); E11.9 Type 2 diabetes mellitus without complications; Z87.891 Personal history of nicotine dependence; I10 Essential (primary) hypertension; Z79.4 Long term (current) use of insulin; Z79.899 Other long term (current) drug therapy
CPT/HCPCS: 82962

== ENCOUNTER 2018-05-04 05:35 | Outpatient (CLI) | payer OTHER, MEDICARE ==
[~2018-05-04] VITALS: Ht 180.3 cm; Wt 89.8 kg
== END 2018-05-04 10:42 | disposition home or self-care (01) ==
LOC: PREOP 05:35
PROVIDERS: ATTEND Specialist
DX: Z01.818 Encounter for other preprocedural examination (principal)

== ENCOUNTER 2018-05-05 06:31 | Day surgery (SDC) | payer OTHER, MEDICARE ==
[~2018-05-05] VITALS: Ht 180.3 cm; Wt 89.8 kg
[2018-05-05 06:44] VITALS: BP 129/76
[2018-05-05] MEDS ORDERED: MOXIFLOXACIN OPHTH SOLN 5 MG/ML 0.3 ML SYRINGE OP ONE (06:45)
[2018-05-05] MEDS ORDERED: POVIDONE (BETADINE) OPHTH SOLN 5% 30 ML OP ONE (06:45)
[2018-05-05] MEDS ORDERED: LIDOCAINE PF 1% 2 ML AMP IR PRN (06:45)
[2018-05-05] MEDS ORDERED: TIMOLOL MALEATE 0.5% 5 ML (TIMOPTIC) BTL OU PRN (06:45)
[2018-05-05] MEDS: TETRACAINE 0.5% OPHTH SOLN 4 ML BTL (SINGLE DOSE ONLY) OU PRN ×4 (06:53→07:15)
[2018-05-05] MEDS: CYCLOPENTOLATE 1% (CYCLOGYL) 2 ML DROPS OP SCH ×3 (07:02→07:16)
[2018-05-05] MEDS: PHENYLEPHRINE 10% OPHTH (NEO-SYN) 5 ML BTL OU SCH ×3 (07:02→07:15)
--- NOTE | 2018-05-05 07:11 | Ophthalmologist Pre-Op Note ---
Pre-Operative Progress Note H&P Reviewed The H&P was reviewed, patient examined and no changes noted. Date H&P Reviewed: May 05, 2018 Time H&P Reviewed: 07:11 Pre-Op Dx Cataract, Right Eye CHARITY WHEAT MD May 05, 2018 07:11
[2018-05-05] MEDS ORDERED: MIDAZOLAM 2 MG/2 ML (VERSED) VIAL ONE (07:31)
[2018-05-05] MEDS ORDERED: acetaZOLAMIDE ER 500 MG CAP (DIAMOX SEQUELS) PO ONE (08:00)
--- NOTE | 2018-05-05 08:01 | Ophthalmology Operative Report ---
Cataract removal/placement IOL PREOPERATIVE DIAGNOSIS: Cataract Right Eye POSTOPERATIVE DIAGNOSIS: Cataract Right Eye PROCEDURE: Cataract removal and placement of posterior chamber implant, right eye SURGEON: Bradley Wheat ANESTHESIA: Topical with sedation COMPLICATIONS: None ESTIMATED BLOOD LOSS: Minimal DESCRIPTION OF PROCEDURE: After proper informed consent was obtained, the patient, a 62 male, was taken to the Operating Room and the right eye was anesthetized with tetracaine. The right eye was then prepped and draped in the usual manner. A wire lid speculum was placed. A paracentesis was made at the left hand position. Preservative free lidocaine was injected into the anterior chamber followed by viscoelastic. A clear corneal incision was made in the temporal position. A capsulorrhexis was preformed and the central nuclear and cortical material were removed. The posterior capsule was polished and Reggie [id number] 18.5 IOL was placed into the capsular bag. The residual viscoelastic was aspirated and balanced saline solution was injected into the anterior chamber. Moxifloxacin was injected into the anterior chamber. The wound was checked and found to be water tight. The patient tolerated the procedure well without complications. BRDALEY WHEAT MD May 05, 2018 08:01
[2018-05-05 08:10] VITALS: BP 127/91
--- NOTE | 2018-05-05 10:45 | Anesthesia-General Post-Op ---
MAC Patient Condition Mental Status/LOC: Same as Preop Cardiovascular: Satisfactory Nausea/Vomiting: Absent Respiratory: Satisfactory Pain: Controlled Complications: Absent Post Op Complications Complications None Follow Up Care/Instructions Patient Instructions None needed. Anesthesiology Discharge Order Discharge Order Patient is doing well, no complaints, stable vital signs, no apparent adverse anesthesia problems. No complications reported per nursing. JARETH HOOD CRNA May 05, 2018 10:45
== END 2018-05-05 08:15 | disposition home or self-care (01) ==
LOC: SDC 06:31
PROVIDERS: ATTEND Specialist
DX: H25.11 Age-related nuclear cataract, right eye (principal); E11.9 Type 2 diabetes mellitus without complications; I10 Essential (primary) hypertension; Z79.899 Other long term (current) drug therapy; Z79.4 Long term (current) use of insulin
CPT/HCPCS: 82962

== ENCOUNTER → 2019-03-16 | Outpatient (CLI) | payer OTHER, MEDICARE ==
[~2019-03-16] MED LIST changes: -GEMF600T4 PO; +GEMF600T8 PO
--- NOTE | 2019-03-16 10:20 | Diagnostic Imaging Report ---
PROCEDURE: CT abdomen and pelvis without contrast. TECHNIQUE: Multiple contiguous axial images were obtained through the abdomen and pelvis without the use of intravenous contrast. Auto Exposure Controls were utilized during the CT exam to meet ALARA standards for radiation dose reduction. INDICATION: Right-sided abdominal pain for 2 months. COMPARISON: Correlation is made with prior CT from 01/29/2018. FINDINGS: The lung bases are clear. Small low-density left lobe of the liver is stable when compared with prior exam. No new liver mass is detected. Gallbladder is unremarkable. No biliary duct dilatation is seen. The pancreas and spleen are unremarkable. No adrenal mass is detected. No definite renal calculi or hydronephrosis is detected. Aorta is calcified but non-aneurysmal. Previously noted encapsulated fatty lesion in the mesentery of the midabdomen has been surgically removed. No recurrent mass is identified. The small and large bowel loops are normal in caliber. There is diverticulosis of the sigmoid but no evidence of acute diverticulitis. Appendix is visualized and unremarkable. No free fluid or fluid collection is identified. The bladder is decompressed. The bony structures are nonacute. IMPRESSION: 1. Uncomplicated diverticulosis. 2. No acute feature is detected. Dictated by: Dictated on workstation # [id number]
== END ==
LOC: RAD 09:19
PROVIDERS: ATTEND Internal Medicine
DX: K57.30 Diverticulosis of large intestine without perforation or abscess without bleeding (principal)
CPT/HCPCS: 74176

== ENCOUNTER → 2019-04-29 | Outpatient (CLI) | payer OTHER, MEDICARE ==
[~2019-04-29] MED LIST changes: +CATHETER FLUSH 10 ML SYR IV PRN
--- NOTE | 2019-04-29 11:45 | Diagnostic Imaging Report ---
INDICATION: Abdominal pain. Hepatobiliary scan 5.04 mCi of technetium 99m Choletec was given intravenously for the scan. One can of Ensure was given at 60 minutes There is homogeneous uptake of isotope throughout the liver. The cystic duct and common duct are both patent. The gallbladder ejection fraction is 92%. IMPRESSION: Normal hepatobiliary scan and gallbladder ejection. Dictated by: Dictated on workstation # [id number]
== END ==
LOC: CARD 08:32
PROVIDERS: ATTEND Internal Medicine Gastroenterology
DX: R11.2 Nausea with vomiting, unspecified (principal); R10.13 Epigastric pain
CPT/HCPCS: 78227

== ENCOUNTER → 2019-08-30 | Outpatient (CLI) | payer OTHER, MEDICARE ==
[~2019-08-30] MED LIST changes: +ACHYD1T PO; -CATHETER FLUSH 10 ML SYR IV PRN; -GLIM4TAB PO; +GLIM4TAB5 PO; -HYDR-3820 PO
--- NOTE | 2019-08-30 13:32 | Diagnostic Imaging Report ---
INDICATION: Left hip pain following a fall. EXAMINATION: Left hip from 08/30/2019. TECHNIQUE: A frontal view of the pelvis and two views of the left hip were performed. FINDINGS: There are no fractures and no dislocations appreciated. Both hip joint spaces appear maintained. IMPRESSION: No evidence for fracture; however, if pain persists or patient cannot bear weight, further imaging would be recommended. Dictated by: Dictated on workstation # [id number]
== END ==
LOC: RAD 12:47
PROVIDERS: ATTEND Internal Medicine
DX: M25.552 Pain in left hip (principal); W19.XXXA Unspecified fall, initial encounter

== ENCOUNTER → 2020-11-19 | Outpatient (CLI) | payer OTHER, MEDICARE ==
[~2020-11-19] MED LIST changes: -GEMF600T8 PO; +GEMF600T88 PO; -LISI10TA2 PO; +LISI10TA25 PO; -PANT40TA3 PO; +PANT40TA52 PO
--- NOTE | 2020-11-19 08:29 | Diagnostic Imaging Report ---
INDICATION: Paresthesias and numbness in lips and face. TECHNIQUE: Multiple contiguous axial images were obtained through the brain without the use of intravenous contrast. Auto Exposure Controls were utilized during the CT exam to meet ALARA standards for radiation dose reduction. There is no prior study for comparison There are no extra-axial fluid collections. No intracranial hemorrhage. No intracranial mass or mass effect. No midline shift. The ventricles are normal in size and position. There were no focal parenchymal abnormalities in the brain. Calvarial windows appear unremarkable. IMPRESSION: Negative noncontrast brain CT. Dictated by: Dictated on workstation # [id number]
== END ==
LOC: RAD 07:45
PROVIDERS: ATTEND Internal Medicine
DX: R20.2 Paresthesia of skin (principal); R20.0 Anesthesia of skin
CPT/HCPCS: 70450